=== PATIENT | female | born 1980 | race Hispanic/Latino ===

== ENCOUNTER 2018-01-01 06:14 | Observation (INO) | payer BC ==
[2017-12-26 09:38] VITALS: BMI 22.4
[2018-01-01 06:59] LABS: HEMOGLOBIN 14.1 g/dL (12.0-16.0); MEAN CELL VOLUME 91.3 fl (81.0-99.0); MEAN CORPUSCULAR HEMOGLOBIN 30.3 pg (27.0-31.0); MEAN CORPUSCULAR HGB CONC 33.2 g/dL (33.0-37.0); RBC 4.65 Mil/uL (3.80-5.20); RED CELL DISTRIBUTION WIDTH 13.5 % (11.5-14.5); WHITE BLOOD COUNT 8.1 K/uL (4.8-10.8)
[2018-01-01] MEDS ORDERED: Lactated Ringer's 1,000 ML IV ONE ×3 (07:10→07:50)
[2018-01-01] MEDS ORDERED: Propofol 10 mg/ml Inj (20 ML) ONE (07:38)
[2018-01-01] MEDS ORDERED: Midazolam 2 MG/2 ML VIAL ONE (07:38)
[2018-01-01] MEDS ORDERED: ePHEDrine 50 mg/ml Inj ONE (07:38)
[2018-01-01] MEDS ORDERED: Succinylcholine 200 mg/10 ml Inj IV ONE (07:39)
[2018-01-01] MEDS ORDERED: Lidocaine 4% (Laryng-O-Jet) Kit MM ONE (07:39)
[2018-01-01] MEDS ORDERED: Rocuronium 10 mg/ml (5 ml) ONE (07:39)
[2018-01-01] MEDS ORDERED: Phenylephrine 10 mg/ml Inj ONE (07:46)
[2018-01-01] MEDS ORDERED: Neostigmine Methylsulfate 3mg/3ml Syringe IV ONE (07:46)
[2018-01-01] MEDS: Bupivacaine 0.5% Inj(30mL) ONE ×2 (07:52→09:30)
[2018-01-01] MEDS ORDERED: Dexamethasone 4 mg/1 ml ONE (09:27)
[2018-01-01] MEDS ORDERED: Sevoflurane - Inhalation Anesthetic Liq (250 ml) ONE (09:29)
[2018-01-01] MEDS ORDERED: Silver Nitrate Topical - Stick ONE (11:01)
[2018-01-01] MEDS ORDERED: Lactated Ringer's 1,000 ML IV SCH (11:15)
[2018-01-01] MEDS ORDERED: Oxycodone/Acetaminophen 5/325 mg Tab PO ONE (17:15)
[2018-01-01] MEDS: Oxycodone/Acetaminophen 5/325 mg Tab PO PRN (23:21)
[2018-01-02] MEDS: Oxycodone/Acetaminophen 5/325 mg Tab PO PRN (07:40)
[2018-01-02 07:54] VITALS: BP 97/58; PULSE 76; RESP 19; TEMP 98.7; O2SAT 98
--- NOTE | 2018-01-27 15:21 | OP ---
PROCEDURE DATE: 01/01/2018 PREOPERATIVE DIAGNOSES: Pelvic pain, dysmenorrhea, dyspareunia, rule out pelvic endometriosis, also rule out Mullerian anomaly. POSTOPERATIVE DIAGNOSES: Pelvic pain, dysmenorrhea, dyspareunia, rule out pelvic endometriosis, also rule out Mullerian anomaly plus no evidence of bicornuate uterus, and pelvic endometriosis. PROCEDURE PERFORMED: Hysteroscopy diagnostic, da oswaldo robotic laparoscopy with excision of endometriosis, excision of anterior bladder mass, and right ureterolysis. SURGEON: Wade Garcia MD PORTFOLIO CONSULTANT: Tucker Mcneill MD TYPE OF ANESTHESIA: General endotracheal. COMPLICATIONS: None. ESTIMATED BLOOD LOSS: Minimal. SPECIMENS: Multiple specimens including bladder endometriosis, left pelvic side wall endometriosis, posterior cervical, left uterosacral, right fallopian tube endometriosis, right ovarian fossa, right periureteral endometriosis, right pelvic side wall endometriosis, and right ovarian fossa endometriosis. INDICATION FOR THE PROCEDURE: The patient is a 37-year-old female with a history of pelvic pain, dysmenorrhea, and dyspareunia. The patient had left renal agenesis, suggestive of potential of Mullerian anomaly. Prior to the surgery, she was counseled with all the risks and benefits with regarding to the surgery and she reaffirmed the consent and signed it and she was taken to the OR. DESCRIPTION OF PROCEDURE: After adequate anesthesia was obtained, the patient was placed in dorsal lithotomy position. She was prepped and draped. The surgeon was gowned and gloved. Extreme attention was placed on positioning the patient in an extensive padding in all areas prone to pressure and also placing her hips in a fixed position, in a comfortable position without extending or flexing her hips. At this point, the procedure was started. A Downey was placed into the bladder. A speculum was placed into the vagina. The anterior lip of the cervix was grasped. The cervix was dilated and uterine cavity was identified. The uterine cavity appeared to be normal in size and both ureteral ostia were visualized. At this point, attention was on the abdomen where an open laparoscopy technique was utilized while making incision on the skin, incising the fascia and entering the peritoneum in a blunt fashion. The abdomen was insufflated. The pelvis and the abdomen were visualized. The upper abdomen appeared to be clear of lesions and liver surface appeared to be normal. At this point, attention was in the pelvic area where the uterus was slightly missshapen due to presence of what appeared to be adenomyosis or small fibroids. The right tube appeared to have some level of endosalpingiosis or salpingitis isthmica nodosa. The left tube appeared to be normal. The anterior bladder had like a large mass anteriorly, suggestive of endometriosis in the smaller area on the right hand side. The pelvis had endometriosis implants in multiple areas. Attention was first anteriorly where the bladder was identified and an incision was made around the mass and it was progressively dissected off with extreme care not to enter the muscularis of the bladder. An additional lesion also on the right hand side on the serosa of the bladder was excised. At this point, attention was posteriorly where after elevating the left ovary, an area of endometriosis was identified in the left ovarian fossa. This full area was then progressively excised with extreme care not to damage the vessel. At this point, attention was on the posterior cervix where again an area of endometriosis were identified in the posterior area and it was excised. Attention was in the right hand side where the ovary appeared to be attached to the posterior to the pelvis side wall. The ovary was elevated and multiple focuses of endometriosis were identified on the pelvis. Attention was first in the upper area where right below in the infundibulopelvic ligament, a progressive dissection was done, entering the retroperitoneal space. A full dissection was performed very carefully dissecting the ureter on the left hand side and freeing it up. The perineum was quite adherent, but a good dissection was performed, excising a large area of endometriosis. At this point, on the right ovarian fossa, again focus of endometriosis was identified and it was also excised and removed with great care to preserve the uterine vessels. At this point, multiple areas of what appeared to be endometriosis implants on the right fallopian tube were also excised leaving the right fallopian tube intact. Both tubes had normal fimbriated ends. At this point, it was checked for hemostasis and appeared to be excellent. The pelvis was extensively irrigated. The da Oswaldo robot was undocked. The instruments were removed. The abdomen was desufflated. The incision was closed with PDS for the fascia and 4-0 Monocryl for the skin. At the end of the procedure, all tapes and instruments counts were correct. The patient tolerated the procedure well, was taken to the recovery room in excellent condition. Wade Garcia MD [facility] # [id number] [facility]
== END 2018-01-02 13:11 | disposition home or self-care (01) ==
LOC: H.OPSURG 06:14 → H.MEDSURG1 18:47
PROVIDERS: ADMIT Obstetrics & Gynecology Reproductive Endocrinology; ATTEND Obstetrics & Gynecology Reproductive Endocrinology
DX: N80.0 Endometriosis of uterus (principal); N32.89 Other specified disorders of bladder; N80.1 Endometriosis of ovary; N80.2 Endometriosis of fallopian tube; N80.3 Endometriosis of pelvic peritoneum; N80.8 Other endometriosis; N94.6 Dysmenorrhea, unspecified; N94.10 Unspecified dyspareunia; Z88.2 Allergy status to sulfonamides
CPT/HCPCS: 36415; 52235; 58662; 85027; 86850; 86900; 88305; 96374; 96375; 96376; C1729; G0378; J0330; J0690; J1100; J1170; J1885; J2250; J2370; J2405; J2704; J2710; J3010; J7030; J7040; J7120